=== PATIENT | male | born 1945 | race Caucasian/White ===

== ENCOUNTER 2017-08-06 16:43 | Inpatient (IN) | payer MEDICARE, BC ==
[2017-08-06] MEDS ORDERED: Pantoprazole 40 MG VIAL ONE (17:11)
[2017-08-06 17:19] LABS: #Basophils 0.1 thou/uL (0.0-0.2); #Eosinphils 0.1 thou/uL (0.0-0.7); #Lymphocytes 2.8 thou/uL (1.20-3.40); #Monocytes 1.9 thou/uL (0.11-0.59); %Basophils 0.4 % (0.0-1.0); %Eosinophils 0.4 % (0.0-10.0); %Lymphocytes 16.4 % (21.0-51.0); %Monocytes 11.1 % (0.0-10.0); %Neutrophils 71.6 % (42.0-75.0); Hemoglobin 14.7 g/dL (14.0-18.0); Mean Corpuscular Hemoglobin 31.2 pg (27.0-31.0); Mean Corpuscular Volume 88.9 fl (80.0-94.0); Mean Platelet Volume 6.3 fL (7.4-10.4); Platelet Count 382 thou/uL (130-400); RBC Distribution Width 11.8 % (11.5-14.5); Red Blood Cell (RBC) Count 4.71 mill/uL (4.70-6.10); White Blood Cell (WBC) Count 16.7 thou/uL (4.8-10.8)
[2017-08-06 17:33] LABS: PTT 27.5 SEC (22.9-36.1); Prothrombin Time 13.8 SEC (12.0-14.7)
[2017-08-06 17:48] LABS: Anion Gap 12 mmol/L (10-20); BUN (Urea Nitrogen) 14 mg/dL (8.4-25.7); Calc. Creatinine Clearance 0 mL/min (70-130); Calcium 9.5 mg/dL (7.8-10.44); Carbon Dioxide 26 mmol/L (23-31); Chloride 95 mmol/L (98-107); Estimated GFR-MDRD 65; Glucose 110 mg/dL (83-110); Sodium 129 mmol/L (136-145)
[2017-08-06 18:00] LABS: CKMB 4.2 ng/mL (0-6.6); Troponin I Less than 0.010 ng/mL (< 0.028)
--- NOTE | 2017-08-06 19:04 | PDOC.FPRHP ---
- History of Present Illness Chief Complaint: rectal bleed s/p colonoscopy History of Present Illness: Patient comes in for GI bleed after colonoscopy. PMH includes HLD, HTN, Hep C, and Bipolar. Colonoscopy was at 0830 this AM with 6 polyps removed and since that time he has had 6 episodes of bright red blood per rectum. He describes the stools as water with bright red tinge that spatters the toilet bowl. No large clots. The first episode was about 1130 this AM. He is not having any pain with bowel movements. He did eat 1 meal since having the colonoscopy. He denies any pain at the present time. While in the ED he had an episode of syncope while the nursing staff was giving fluids. He denies any headache or weakness. He had no aura. He has not felt light-headed since that episode. He states he has had episodes like this in the past when he gets anxious. ED Course: CXR, Abdominal X-ray 1 bolus NS Pantoprazole IV - Allergies/Adverse Reactions Allergies Allergy/AdvReac Type Severity Reaction Status Date / Time Penicillins Allergy Rash Verified 08/06/17 22:17 - Home Medications Medication Instructions Recorded Confirmed Type Atenolol 25 mg PO DAILY 02/21/15 08/07/17 History Benazepril HCl 40 mg PO HS 02/21/15 08/07/17 History Hydrochlorothiazide 25 mg PO BID 02/21/15 08/07/17 History Multivit-Min/FA/Lycopen/Lutein [A 1 tablet PO DAILY 02/21/15 08/07/17 History Thru Z Select Multivitamin] Pantoprazole [Protonix] 40 mg PO DAILY 02/21/15 08/07/17 History Saw Pierron 450 mg PO DAILY 02/21/15 08/07/17 History Simvastatin [Zocor] 40 mg PO QPM 02/21/15 08/07/17 History risperiDONE [RisperDAL] 1 mg PO HS 02/21/15 08/07/17 History Aspirin [Ecotrin] 81 mg PO DAILY 08/07/17 08/07/17 History Escitalopram Oxalate [Lexapro] 10 mg PO HS 08/07/17 08/07/17 History Temazepam [Restoril] 15 mg PO HS 08/07/17 08/07/17 History - History PMHx: HLD, HTN, Hep C, Bipolar, frequent UTIs PSHx: Appendectomy, Rotator Cuffx2 FHx: non-contributory mother/father Social: 45 pack-year smoking history, quit 30 years ago, 1-2 beers per week, no illicit drugs - Review of Systems General: denies: fever/chills, weight/appetite/sleep changes, night sweats Eyes: denies: eye pain, vision changes ENT: denies: nasal congestion, rhinorrhea Respiratory: denies: cough, congestion, shortness of breath Cardiovascular: reports: palpitation (this afternoon felt heart racing at times) . denies: chest pain, edema, orthopnea Gastrointestinal: reports: diarrhea (see hpi), GI bleeding. denies: nausea, vomiting, abdominal pain Genitourinary: reports: dysuria (1-2 days ago). denies: polyuria Skin: reports: rashes (jock itch). denies: lesions Musculoskeletal: denies: pain, arthritis/arthralgias Neurological: reports: syncope (see hpi). denies: numbness, seizure, weakness Psychological: reports: anxiety. denies: depression - Vital signs BP: 132/79 HR: 66 RR: 16 Tmax: 99.1 Pox: 100% on RA Wt: 108.86 - Physical Exam Constitutional: NAD, awake, alert and oriented HEENT: normocephalic and atraumatic, PERRLA, EOMI, MMM, oropharynx clear Neck: supple, FROM Heart: RRR, normal S1/S2, no murmurs/rubs/gallops Lungs: CTAB, no respiratory distress, good air movement Abdomen: soft, bowel sounds present, no masses/distention, other (mild epigastric tenderness) -Abdomen: no rebound tenderness, no fluid wave Musculoskeletal: normal structure, ROM grossly normal Neurological: no focal deficit, CN II-XII intact, normal sensation Skin: other (mild rash in groin creases) -Skin: cap refill 3s Heme/Lymphatic: no unusual bruising or bleeding Psychiatric: normal mood and affect FMR H&P: Results - Labs Result Diagrams: 08/06/17 23:24 08/06/17 17:10 Lab results: WBC 16.7 thou/uL (4.8-10.8) H 08/06/17 17:10 Hgb 14.7 g/dL (14.0-18.0) 08/06/17 17:10 Hct 41.9 % (42.0-52.0) L 08/06/17 17:10 MCV 88.9 fl (80.0-94.0) 08/06/17 17:10 Plt Count 382 thou/uL (130-400) 08/06/17 17:10 Neutrophils % 71.6 % (42.0-75.0) 08/06/17 17:10 Sodium 129 mmol/L (136-145) L 08/06/17 17:10 Potassium 4.0 mmol/L (3.5-5.1) 08/06/17 17:10 Chloride 95 mmol/L (98-107) L 08/06/17 17:10 Carbon Dioxide 26 mmol/L (23-31) 08/06/17 17:10 BUN 14 mg/dL (8.4-25.7) 08/06/17 17:10 Creatinine 1.11 mg/dL (0.6-1.3) 08/06/17 17:10 Glucose 110 mg/dL (83-110) 08/06/17 17:10 Calcium 9.5 mg/dL (7.8-10.44) 08/06/17 17:10 CK-MB (CK-2) 4.2 ng/mL (0-6.6) 08/06/17 17:10 FMR H&P: A/P - Problem List (1) GI bleed Current Visit: Yes Status: Acute Code(s): K92.2 - GASTROINTESTINAL HEMORRHAGE, UNSPECIFIED (2) Hyponatremia Current Visit: Yes Status: Acute Code(s): E87.1 - HYPO-OSMOLALITY AND HYPONATREMIA (3) Dehydration Current Visit: Yes Status: Acute Code(s): E86.0 - DEHYDRATION (4) Syncope Current Visit: Yes Status: Acute Code(s): R55 - SYNCOPE AND COLLAPSE (5) Status post colonoscopy Current Visit: Yes Status: Acute Code(s): Z98.890 - OTHER SPECIFIED POSTPROCEDURAL STATES - Plan # GI bleed s/p colonoscopy - Hgb 14.9, will re-check at 1130 - Clear liquid diet - GI Dr. Grossman is aware, recs monitor Hgb, call back if issues - serial abdominal exams # Syncope - in ED when placing IV, states this has happened before - Hgb 14.9, BP stable - no headache or focal weakness, likely vasovagal #Dehydration - cap refill 3s, feeling thirsty - only had 1 meal today after colonoscopy - 1L NS bolus in ED - NS 150ml/hr # Hyponatremia - 129 on admission - fluid repletion, recheck in AM # GERD - protonix # SIOMARA - home cpap # HTN - hold home meds 2/2 syncope # HLD - home meds # PPx - SCDs - bleeding risk # Code - full FMR H&P: Upper Level - Pertinent history PCP: Estrada Hernandez DO Patient seen at approximately 19:00 71 year old white male with a past medical history of HTN, SIOMARA, GERD, and HLD presents with hematochezia starting this afternoon. He had a colonoscopy performed by Dr. Powell today. He had 6 polyps removed. He originally had a small amount of blood but progressed to grossly blood stools and clots. In the ED he had a syncopal episode after getting his iv placed. He denies dizziness, confusion, chest pain, dyspnea, abdominal pain, nausea, and vomiting. - Pertinent findings Vital Signs BP: 150/79 HR: 66 RR: 19 O2 sat 100% on RA Temp 99.1 Physical Exam: General: NAD. Awake, alert, and oriented x4. Obese Eyes: EOMI, PERRLA, nonicteric ENT: MMM. Oropharynx clear CV: Regular rate and rhythm. No murmurs, rubs, or gallops. Respiratory: CTAB, no WRR. Nonlabored. Abdomen: Nontender, nondistended, no guarding, or rebound. Ext: No clubbing, cyanosis, or edema. Skin: No rash or ulcer. No palpable lesions Neuro: CN II - XII intact. No focal deficits. Psych: Mood and affect appropriate. Judgment and insight intact. - Plan Date/Time: 08/06/171900 I, Estrada Hernandez DO, have evaluated this patient and agree with findings/plan as outlined by internal grinder tender resident. Pertinent changes/additions are listed here. 71 year old white male presents with: 1) Acute GI bleed - Place in observation. Likely from polypectomy sites. Recheck CBC every 6 hours. I discussed the case with Dr. Grossman who recommended monitoring overnight and serial CBC. Will formally consult GI if patient has further bleeding. Monitor vital signs closely. Clear liquid diet. 2) Syncopal episode - Suspect vasovagal syncopy. Will monitor closely. 3) HTN - Home meds 4) Bipolar disorder - Home meds 5) HLD - Home meds 6) Obstructive sleep apnea - Home CPAP 7) GERD - Protonix 8) Code status - Full Attending Addendum - Attending Addendum Date/Time: 08/07/17 0124 (Seen on 08/06) I personally evaluated the patient and discussed the management with Dr. Landaverde and team. I agree with and repeated the History, Examination, Assessment and Plan documented above with any addition or exceptions noted below. Post-polypectomy bleed without signs/symptoms of perforation. Serial h/h. GI consultation.
[2017-08-06] MEDS ORDERED: Acetaminophen 325 MG TAB PO PRN (19:46)
[2017-08-06] MEDS ORDERED: Sodium Chloride 0.9% 1,000 ML IV SCH ×2 (19:46→21:30)
[2017-08-06 19:50] VITALS: BMI 35.4
--- NOTE | 2017-08-06 19:51 | RAD ---
ACUTE ABDOMINAL SERIES: 08/06/17 CLINICAL HISTORY: Altered mental status. Rectal bleeding. Recent colonoscopy. FINDINGS: Frontal view chest reveals no consolidation or effusion. No free air is seen beneath the hemidiaphrag ms. Cardiac silhouette is accentuated by technique. Bowel gas pattern is nonobstructed. Scattered oss eous degenerative changes are present. Phleboliths overlie the pelvis. IMPRESSION: No acute abnormalities are identified. POS: [facility]
[2017-08-06] MEDS ORDERED: GoLYTELY 4,000 ml Bottle PO SCH (21:30)
[2017-08-06 22:00] LABS: Band 3 % (5-11); Eosinophils 1 % (0-10); Lymphocytes 19 % (21-51); MDiff Complete? YES; Mean Corpuscular Hemoglobin 31.1 pg (27.0-31.0); Mean Corpuscular Volume 88.8 fl (80.0-94.0); Mean Platelet Volume 6.4 fL (7.4-10.4); Monocytes 4 % (0-10); Neutrophil 73 % (42-75); PLT Morphology Comment Appears Adequate; Platelet Count 378 thou/uL (130-400); RBC Distribution Width 11.7 % (11.5-14.5); Red Blood Cell (RBC) Count 4.19 mill/uL (4.70-6.10); White Blood Cell (WBC) Count 20.6 thou/uL (4.8-10.8)
--- NOTE | 2017-08-06 22:09 | PDOC.EVN ---
Event Note - Event Note Event Note: River sharma called on patient at approximately 21:00. Nurse had helped patient to toilet and reports he stated he didn't feel right, became pail, passed out and became unresponsive while sitting on the toilet. He had a pulse and spontaneous respirations at that time. Rudi Torres, Saima, and I responded to river sharma. On arrival at patient room, he was still sitting on toilet and was awake and able to answer questions appropriately. Stated he felt weak but was not in any pain. Patient's nurse reported he passed 400 cc blood from rectum just prior to event and had passed another 250 cc prior to this event but after arriving to floor. Patient was helped to bed. Vital Signs - Temp 98.1 HR 67 RR 20 BP 134/78 O2 96% on room air He was not in distress at the time but appeared pale. Heart rate was regular, lungs were clear, abdomen was soft, nondistended, and nontender. Patient was moved to IMCU. 1L NS bolus, CBC were ordered. 4 units FFP and 2 units PRBC were ordered to be held. I spoke with Dr. Grossman in GI at 21:24 and updated him on patient passing large amount of stool and syncopizing. He recommended making patient NPO and starting GoLytely prep. He stated he would come see the patient. Formal consult was ordered. <Estrada Hernandez - Last Filed: 08/06/17 22:09> Attending Addendum - Attending Addendum Date/Time: 08/07/17 0128 I personally evaluated the patient and discussed the management with Dr. Hernandez. I agree with and repeated the History, Examination, Assessment and Plan documented above with any addition or exceptions noted below. <Edgar Stern - Last Filed: 08/07/17 01:28>
[2017-08-06] MEDS: Sodium Chloride 0.9% 1,000 ML IV SCH (22:30)
[2017-08-06] MEDS ORDERED: diphenhydrAMINE 25 MG CAP PO PRN (23:36)
[2017-08-06 23:38] LABS: Hemoglobin 12.1 g/dL (14.0-18.0)
[2017-08-06] MEDS ORDERED: risperiDONE 1 MG TAB PO SCH (23:45)
--- NOTE | 2017-08-07 00:14 | PDOC.EVN ---
Event Note - Event Note Event Note: Patient reports no more BMs. Upright in bed drinking GoLytely. P65 BP 130/70 Abdomen soft, non-tender, no rebound Hgb trending down, will transfuse if syncopal episode occurs, pulses increases, or hgb continues to drop 2U PRBC, 4 U FFP on hold <Ike Landaverde - Last Filed: 08/07/17 00:12> Attending Addendum - Attending Addendum Date/Time: 08/07/17 0122 I personally evaluated the patient and discussed the management with Dr. Landaverde and team. I agree with the History, Examination, Assessment and Plan documented above with any addition or exceptions noted below. HDS. To IMCU for closer monitoring. <Edgar Stern - Last Filed: 08/07/17 01:22>
[2017-08-07 04:05] LABS: #Lymphocytes 1.3 thou/uL (1.20-3.40); #Monocytes 0.7 thou/uL (0.11-0.59); #Neutrophils 10.8 thou/uL (1.40-6.50); %Basophils 0.1 % (0.0-1.0); %Eosinophils 0.2 % (0.0-10.0); %Lymphocytes 9.9 % (21.0-51.0); %Monocytes 5.6 % (0.0-10.0); %Neutrophils 84.3 % (42.0-75.0); Hemoglobin 11.3 g/dL (14.0-18.0); Mean Corpuscular HGB CONC 34.9 g/dL (32.0-36.0); Mean Corpuscular Hemoglobin 31.1 pg (27.0-31.0); Mean Corpuscular Volume 89.3 fl (80.0-94.0); Mean Platelet Volume 6.5 fL (7.4-10.4); Platelet Count 305 thou/uL (130-400); RBC Distribution Width 11.7 % (11.5-14.5); Red Blood Cell (RBC) Count 3.62 mill/uL (4.70-6.10); White Blood Cell (WBC) Count 12.8 thou/uL (4.8-10.8)
[2017-08-07 04:21] LABS: Anion Gap 12 mmol/L (10-20); BUN (Urea Nitrogen) 13 mg/dL (8.4-25.7); Calc. Creatinine Clearance 90 mL/min (70-130); Calcium 8.3 mg/dL (7.8-10.44); Carbon Dioxide 25 mmol/L (23-31); Chloride 99 mmol/L (98-107); Estimated GFR-MDRD 66; Glucose 139 mg/dL (83-110); Sodium 132 mmol/L (136-145)
[2017-08-07] MEDS: Sodium Chloride 0.9% 1,000 ML IV SCH ×3 (05:49→17:22)
--- NOTE | 2017-08-07 06:42 | CON ---
DATE OF CONSULTATION: 08/06/2017 REASON FOR CONSULTATION: Hematochezia. CONSULTING PHYSICIAN: Dr. Estrada Hernandez. HISTORY OF PRESENT ILLNESS: The patient is a 71-year-old male with past medical history of hypertens ion, hyperlipidemia, chronic hepatitis C infection and bipolar disorder, presenting with complaints o f hematochezia. He underwent colonoscopy earlier today and had approximately 6 polyps removed during that examination. The polyps were characterized as 6 pedunculated and sessile polyps found in the s igmoid, transverse, and ascending colon. They were medium in size. All these polyps were removed wi snare cautery polypectomy. Also seen during the colonoscopy were multiple diverticula within the sigmoid and descending colon. However, after the procedure, he states that he went to eat breakfast and shortly after eating breakfast, he had the sensation to have a bowel movement. His initial bowel movement was primarily bloody with a little bit of water; however, the next 6-12 hours, he had appro ximately 5 more grossly bloody bowel movements that prompted him to seek healthcare attention. While in the emergency room, he did have an episode of loss of consciousness, felt to be due to a vasovaga l response with no loss of bladder or bowel control and no true syncopal type symptoms. He has not h ad any feelings of lightheadedness since that particular episode and currently he denies any nausea, vomiting, fevers, chills, odynophagia, dysphagia, abdominal pain, hematemesis, melena. REVIEW OF SYSTEMS: A 10-category review of systems was obtained with all responses negative except f or the pertinent positives as listed in the HPI. PAST MEDICAL HISTORY: As per HPI. PAST SURGICAL HISTORY: Appendectomy, rotator cuff surgery. FAMILY HISTORY: Denies any GI malignancies. SOCIAL HISTORY: Drinks approximately 1-2 beers per week. Denies any tobacco or illicit drug use. OUTPATIENT MEDICATIONS: Reviewed. ALLERGIES: PENICILLIN. PHYSICAL EXAMINATION: VITAL SIGNS: Temperature 98.1, pulse 72, blood pressure 126/80, respiratory rate 18, satting 95% on room air. GENERAL: The patient is lying in bed, in no acute distress. Alert and oriented x4. NECK: Supple. No JVD noted. CARDIOVASCULAR: Regular rate and rhythm with no discernible murmurs, gallops or rubs. RESPIRATORY: Clear to auscultation bilaterally with no discernible wheezes or rales. ABDOMEN: Normoactive bowel sounds, soft, nontender, nondistended. EXTREMITIES: No cyanosis, clubbing or edema. LABORATORY DATA: CBC with a white blood cell count 20.6, hemoglobin 13, hematocrit 37.2, platelets 3 78. Chemistry with a sodium of 129, potassium 4, chloride 95, CO2 of 26, BUN 14, creatinine 1.11, gl ucose 110. INR 1.0. IMAGING DATA: Colonoscopy performed on 08/06/2017 showing 6 pedunculated and sessile polyps found in the sigmoid, transverse colon and ascending colon. The polyps were medium in size. These polyps we re removed with a hot snare. Resection and retrieval were complete. Multiple diverticula were found in the sigmoid colon and descending colon. Retroflex view in the distal rectum and anal verge was n ormal and showed no anal or rectal abnormalities. A tattoo was also seen in the descending colon wit h normal appearing surrounding mucosa. ASSESSMENT AND PLAN: The patient is a 71-year-old male with past medical history of hypertension, hy perlipidemia, chronic HCV infection and bipolar disorder, presenting with hematochezia consistent wit h a post-polypectomy bleed. Post-polypectomy bleeding. The patient underwent colonoscopy on 08/06/2017 with removal of 6 pedunculated and sessile polyps in the sigmoid, transverse, and ascending colons. However, after the procedure, he had the appearance o f grossly bloody bowel movements over the course of the next 6-12 hours, but have not abated on their own. On admission, he was noted to have a decreased H&H when compared to baseline, but is currently not tachycardic or hypotensive concerning for significant gastrointestinal bleeding. At this time, repeat colonoscopy for evaluation of these polypectomy sites and possible intervention to stop the bl eeding is indicated. RECOMMENDATIONS: 1. Would continue to trend H&H and transfuse as necessary to maintain an H&H of 7/21. 2. Would start patient on GoLYTELY prep now with plans to proceed with colonoscopy in the morning fo r evaluation of probable post-polypectomy bleed and intervene on that particular site when encountere d. 3. Agree with transfer patient to the ICU for closer monitoring in light of significant hematochezia . 4. We will continue to follow. Please call with any questions.
--- NOTE | 2017-08-07 06:50 | PDOC.FM ---
- Objective Vital Signs & Weight: Vital Signs (12 hours) Temp Temp Pulse Pulse Resp Resp BP 08/07/17 04:00 97.5 F L 72 17 08/07/17 00:00 97.9 F 77 16 08/06/17 21:31 97.9 F 77 16 08/06/17 21:18 98.1 F 72 20 134/88 08/06/17 21:00 98.1 F 72 18 08/06/17 19:48 98.1 F 72 18 BP Pulse Ox Pulse Ox 08/07/17 04:00 160/82 H 99 08/07/17 00:00 153/80 H 100 08/06/17 21:31 134/69 100 08/06/17 21:18 94 L 08/06/17 21:00 08/06/17 19:48 126/80 95 Weight Weight 106.231 kg I&O: 08/05/17 08/06/17 08/07/17 06:59 06:59 06:59 Intake Total 5130 Output Total 400 Balance 4730 Result Diagrams: 08/07/17 03:45 08/07/17 03:45 <Karen Ellis - Last Filed: 08/07/17 06:49> - Objective Vital Signs & Weight: Vital Signs (12 hours) Temp Pulse Resp BP Pulse Ox 08/07/17 07:55 97.8 F 72 18 100 08/07/17 07:41 97.8 F 72 18 114/63 99 08/07/17 04:00 97.5 F L 72 17 160/82 H 99 08/07/17 00:00 97.9 F 77 16 153/80 H 100 Weight Weight 106.231 kg I&O: 08/06/17 08/07/17 08/08/17 06:59 06:59 06:59 Intake Total 5130 Output Total 400 Balance 4730 Result Diagrams: 08/07/17 03:45 08/07/17 03:45 <Alfonso Elder - Last Filed: 08/07/17 10:23> Dx/Plan (1) HTN (hypertension) Code(s): I10 - ESSENTIAL (PRIMARY) HYPERTENSION Status: Acute (2) Bipolar disorder Code(s): F31.9 - BIPOLAR DISORDER, UNSPECIFIED Status: Acute (3) HLD (hyperlipidemia) Code(s): E78.5 - HYPERLIPIDEMIA, UNSPECIFIED Status: Acute (4) SIOMARA (obstructive sleep apnea) Code(s): G47.33 - OBSTRUCTIVE SLEEP APNEA (ADULT) (PEDIATRIC) Status: Acute (5) GERD (gastroesophageal reflux disease) Code(s): K21.9 - GASTRO-ESOPHAGEAL REFLUX DISEASE WITHOUT ESOPHAGITIS Status: Acute (6) Dehydration Code(s): E86.0 - DEHYDRATION Status: Acute (7) GI bleed Code(s): K92.2 - GASTROINTESTINAL HEMORRHAGE, UNSPECIFIED Status: Acute (8) Hyponatremia Code(s): E87.1 - HYPO-OSMOLALITY AND HYPONATREMIA Status: Acute (9) Status post colonoscopy Code(s): Z98.890 - OTHER SPECIFIED POSTPROCEDURAL STATES Status: Acute (10) Syncope Code(s): R55 - SYNCOPE AND COLLAPSE Status: Acute - Plan Plan: 1. GI bleed s/p colonoscopy - Hgb 14.9, 12 on recheck - s/p bowel prep, bleeding has stopped since that time - GI Dr. Grossman is aware, recs monitor Hgb, plan for repeat colonoscopy today - serial abdominal exams 2. Syncope - in ED when placing IV, states this has happened before - Hgb 14.9-> 12, BP stable - no headache or focal weakness, likely vasovagal 3. Dehydration - 1L NS bolus in ED - NS 150ml/hr 4. Hyponatremia - 129 on admission - fluid repletion 5. GERD - protonix 6. SIOMARA - home cpap 7. HTN - hold home meds 2/2 syncope 8. HLD - home meds 9. PPx - SCDs - bleeding risk <Karen Ellis - Last Filed: 08/07/17 06:49> Attending Addendum - Attending Addendum Date/Time: 08/07/17 1020 I personally evaluated the patient and discussed the management with Dr. Ellis. I agree with the History, Examination, Assessment and Plan documented above with any addition or exceptions noted below. He feels well. No N,V, or abdominal pain. Last 3 BMs have been without visual blood. Stable and mildly hypertensive with BP 160/82. Abdomen protruberant, soft, BS active, no organomegaly, masses or tenderness. Hb 11.3. A: Post polypectomy Lower GI bleeding. Stable. P: Scheduled for colonoscopy later this morning with GI. MD James <Alfonso Elder - Last Filed: 08/07/17 10:23>
[2017-08-07] MEDS ORDERED: risperiDONE 1 MG TAB PO SCH ×3 (09:00→21:00)
--- NOTE | 2017-08-07 11:35 | PDOC.FM ---
- Subjective Subjective: Feeling well. He denies any further bloody bowel movements. He is feeling well and has no abdominal pain or weakness. - Objective MAR Reviewed: Yes Vital Signs & Weight: Vital Signs (12 hours) Temp Pulse Resp BP Pulse Ox 08/07/17 10:58 98.2 F 65 19 134/67 100 08/07/17 07:55 97.8 F 72 18 100 08/07/17 07:41 97.8 F 72 18 114/63 99 08/07/17 04:00 97.5 F L 72 17 160/82 H 99 08/07/17 00:00 97.9 F 77 16 153/80 H 100 Weight Weight 106.231 kg I&O: 08/06/17 08/07/17 08/08/17 06:59 06:59 06:59 Intake Total 5130 Output Total 400 Balance 4730 Result Diagrams: 08/07/17 03:45 08/07/17 03:45 <Karen Ellis - Last Filed: 08/07/17 11:42> - Objective Vital Signs & Weight: Vital Signs (12 hours) Temp Pulse Resp BP Pulse Ox 08/07/17 10:58 98.2 F 65 19 134/67 100 08/07/17 07:55 97.8 F 72 18 100 08/07/17 07:41 97.8 F 72 18 114/63 99 08/07/17 04:00 97.5 F L 72 17 160/82 H 99 08/07/17 00:00 97.9 F 77 16 153/80 H 100 Weight Weight 106.231 kg I&O: 08/06/17 08/07/17 08/08/17 06:59 06:59 06:59 Intake Total 5130 Output Total 400 Balance 4730 Result Diagrams: 08/07/17 03:45 08/07/17 03:45 <Alfonso Elder - Last Filed: 08/07/17 11:45> Phys Exam - Physical Examination Constitutional: NAD HEENT: moist MMs Neck: supple Respiratory: no wheezing, clear to auscultation bilateral Cardiovascular: RRR, no significant murmur Gastrointestinal: soft, non-tender, no distention, positive bowel sounds Musculoskeletal: no edema, pulses present Neurological: non-focal, moves all 4 limbs Psychiatric: normal affect, A&O x 3 Skin: no rash, cap refill <2 seconds <Karen Ellis E - Last Filed: 08/07/17 11:42> Dx/Plan (1) HTN (hypertension) Code(s): I10 - ESSENTIAL (PRIMARY) HYPERTENSION Status: Acute (2) Bipolar disorder Code(s): F31.9 - BIPOLAR DISORDER, UNSPECIFIED Status: Acute (3) HLD (hyperlipidemia) Code(s): E78.5 - HYPERLIPIDEMIA, UNSPECIFIED Status: Acute (4) SIOMARA (obstructive sleep apnea) Code(s): G47.33 - OBSTRUCTIVE SLEEP APNEA (ADULT) (PEDIATRIC) Status: Acute (5) GERD (gastroesophageal reflux disease) Code(s): K21.9 - GASTRO-ESOPHAGEAL REFLUX DISEASE WITHOUT ESOPHAGITIS Status: Acute (6) Dehydration Code(s): E86.0 - DEHYDRATION Status: Acute (7) GI bleed Code(s): K92.2 - GASTROINTESTINAL HEMORRHAGE, UNSPECIFIED Status: Acute (8) Hyponatremia Code(s): E87.1 - HYPO-OSMOLALITY AND HYPONATREMIA Status: Acute (9) Status post colonoscopy Code(s): Z98.890 - OTHER SPECIFIED POSTPROCEDURAL STATES Status: Acute (10) Syncope Code(s): R55 - SYNCOPE AND COLLAPSE Status: Acute - Plan Plan: 1. GI bleed s/p colonoscopy - Hgb 14.9, 12 on recheck - s/p bowel prep, bleeding has stopped since that time - GI Dr. Grossman is aware, recs monitor Hgb, plan for repeat colonoscopy today - serial abdominal exams 2. Syncope - in ED when placing IV, states this has happened before - Hgb 14.9-> 11, BP stable - no headache or focal weakness 3. Dehydration - 1L NS bolus in ED - NS 150ml/hr 4. Hyponatremia - 129 on admission - fluid repletion 5. GERD - protonix 6. SIOMARA - home cpap 7. HTN - hold home meds 2/2 syncope 8. HLD - home meds 9. PPx - SCDs - bleeding risk <Karen Ellis - Last Filed: 08/07/17 11:42> Attending Addendum - Attending Addendum Date/Time: 08/07/17 7958 I personally evaluated the patient and discussed the management with Dr. Ellis. I agree with the History, Examination, Assessment and Plan documented above with any addition or exceptions noted below. He feels well. No N,V, or abdominal pain. Last 3 BMs have been without visual blood. Stable and mildly hypertensive with BP 160/82. Abdomen protruberant, soft, BS active, no organomegaly, masses or tenderness. Hb 11.3. A: Post polypectomy Lower GI bleeding. Stable. P: Scheduled for colonoscopy later this morning with GI. MD James <Alfonso Elder - Last Filed: 08/07/17 11:45>
[2017-08-07] MEDS: Pantoprazole 40 MG GRANULES PACKET PO SCH (12:20)
[2017-08-07] MEDS: Multivitamin W/ Minerals 1 TAB PO SCH (12:20)
[2017-08-07] MEDS ORDERED: Promethazine HCl 25 MG/ML VIAL SLOW IVP PRN (15:15)
[2017-08-07] MEDS ORDERED: Promethazine HCl 25 MG/ML VIAL IM PRN (15:15)
[2017-08-07] MEDS ORDERED: Ondansetron HCl/PF 4 MG/2 ML Vial IVP PRN (15:15)
[2017-08-07] MEDS ORDERED: PHENYLEPHRINE-NS 100 MCG/ML 10 ML SYRINGE ONE (15:53)
[2017-08-07] MEDS ORDERED: PROPOFOL 200 MG/20 ML VIAL ONE (15:53)
--- NOTE | 2017-08-07 18:51 | OP ---
DATE OF PROCEDURE: 08/07/2017 SURGEON: Alfonso Cox M.D. HITCHER SURGEON: None. PROCEDURE: Colonoscopy with Hemoclip placement x2. INDICATION: Post-polypectomy bleeding and acute blood loss anemia. MEDICATIONS: See anesthesia record. FINDINGS: After discussion of the risks, benefits and alternatives of the procedure, informed consen t was obtained and witnessed. Pre-endoscopic cardiopulmonary examination was satisfactory. Timeout was performed before sedation was achieved. Sedation was achieved with anesthesia assistance in the endoscopy unit. Digital rectal exam was performed which was unremarkable. A Pentax adult colonoscop e was inserted into the anus and passed forward to the cecum in the usual fashion. The cecal base wa s identified by the appendiceal orifice as well as the ileocecal valve. The terminal ileum was intub ated and the ileal mucosa appeared normal. The colonoscope was then slowly withdrawn in a gradual an d circumferential manner with careful examination of the entire colonic mucosa. The quality of the p rep was good. There was no old blood or active bleeding noted throughout the colon. There were 6 po lypectomy sites visualized in the ascending colon, transverse colon, descending colon, and sigmoid co viviane. Two of these sites were larger with visible vessels. Either one of these sites could have been the site of his recent post-polypectomy bleed. These were located in the ascending colon and in the transverse colon. I placed a single Hemoclip to each of these 2 polypectomy sites and hemostasis wa s maintained. The remainder of the colonoscopy appeared normal. The colonoscope was then completely withdrawn and the patient allowed to recover. The patient tolerated the procedure well. There were no immediate post-procedure complications. IMPRESSION: 1. No old blood or active bleeding. 2. Six polypectomy site as detailed above, two of the sites were larger with visible vessel. Hemocl ips placed x2 to these sites. RECOMMENDATIONS: 1. Regular diet. 2. Okay to discharge from the hospital from a GI perspective.
[2017-08-07] MEDS ORDERED: Atorvastatin Calcium 20 MG TAB PO SCH (21:00)
--- NOTE | 2017-08-08 07:28 | PDOC.FM ---
- Subjective Subjective: Mr. Strickland is feeling very well this morning. He denies any further BRBPR, he has not had a BM since scope yesterday. He has no abdominal pain and feels stable on his feet and ready to go home. - Objective MAR Reviewed: Yes Vital Signs & Weight: Vital Signs (12 hours) Temp Pulse Resp BP Pulse Ox 08/08/17 04:00 98 F 78 18 131/67 95 08/08/17 00:00 98.5 F 62 19 102/51 L 94 L 08/07/17 20:00 98.9 F 78 16 135/58 L 95 Weight Weight 108.136 kg I&O: 08/07/17 08/08/17 08/09/17 06:59 06:59 06:59 Intake Total 5130 2045 Output Total 400 1040 Balance 4730 1005 Result Diagrams: 08/07/17 03:45 08/07/17 03:45 EKG Reviewed by me: Yes <Karen Ellis - Last Filed: 08/08/17 09:27> - Objective Vital Signs & Weight: Vital Signs (12 hours) Temp Pulse Resp BP BP Pulse Ox 08/08/17 08:51 73 144/73 H 08/08/17 07:43 98.3 F 73 15 100/51 L 95 08/08/17 04:00 98 F 78 18 131/67 95 08/08/17 00:00 98.5 F 62 19 102/51 L 94 L Weight Weight 108.136 kg I&O: 08/07/17 08/08/17 08/09/17 06:59 06:59 06:59 Intake Total 5130 2045 Output Total 400 1040 Balance 4730 1005 Result Diagrams: 08/07/17 03:45 08/07/17 03:45 <Alfonso Elder - Last Filed: 08/08/17 10:17> Phys Exam - Physical Examination Constitutional: NAD HEENT: moist MMs, sclera anicteric Neck: supple Respiratory: no wheezing, clear to auscultation bilateral Cardiovascular: RRR, no significant murmur Gastrointestinal: soft, non-tender, no distention, positive bowel sounds Musculoskeletal: no edema, pulses present Neurological: non-focal, moves all 4 limbs Psychiatric: normal affect Skin: no rash, normal turgor, cap refill <2 seconds <Karen Ellis - Last Filed: 08/08/17 09:27> Dx/Plan (1) HTN (hypertension) Code(s): I10 - ESSENTIAL (PRIMARY) HYPERTENSION Status: Acute (2) Bipolar disorder Code(s): F31.9 - BIPOLAR DISORDER, UNSPECIFIED Status: Acute (3) HLD (hyperlipidemia) Code(s): E78.5 - HYPERLIPIDEMIA, UNSPECIFIED Status: Acute (4) SIOMRAA (obstructive sleep apnea) Code(s): G47.33 - OBSTRUCTIVE SLEEP APNEA (ADULT) (PEDIATRIC) Status: Acute (5) GERD (gastroesophageal reflux disease) Code(s): K21.9 - GASTRO-ESOPHAGEAL REFLUX DISEASE WITHOUT ESOPHAGITIS Status: Acute (6) Dehydration Code(s): E86.0 - DEHYDRATION Status: Acute (7) GI bleed Code(s): K92.2 - GASTROINTESTINAL HEMORRHAGE, UNSPECIFIED Status: Acute (8) Hyponatremia Code(s): E87.1 - HYPO-OSMOLALITY AND HYPONATREMIA Status: Acute (9) Status post colonoscopy Code(s): Z98.890 - OTHER SPECIFIED POSTPROCEDURAL STATES Status: Acute (10) Syncope Code(s): R55 - SYNCOPE AND COLLAPSE Status: Acute - Plan Plan: 1. GI bleed s/p colonoscopy - Hgb 14.9 -> 11.2 - Bleeding has stopped since prior to colonoscopy yesterday - No active bleeding visualized, hemoclips placed x2 - OK for D/C from GI standpoint per Case 2. Syncope - Hgb 14.9-> 11.2, BP stable - no headache or focal weakness - Likley vasoval while IV was being placed 3. Dehydration - sp 1L NS bolus in ED 4. Hyponatremia - 129 on admission - improving with fluid repletion 5. GERD - protonix 6. SI[place]ARA - home cpap 7. HTN - home meds - will monitor this morning and consider holding HCTZ if running low 8. HLD - home meds 9. PPx - SCDs - bleeding risk 10. Bipolar d/o - Home meds D/C later this morning with f/u in [address] Hernandez <Karen Ellis - Last Filed: 08/08/17 09:27> Attending Addendum - Attending Addendum Date/Time: 08/08/17 1016 I personally evaluated the patient and discussed the management with Dr. Ellis. I agree with the History, Examination, Assessment and Plan documented above with any addition or exceptions noted below. Seen ambulating in room. States he feels well, no bleeding. Ready to go home. Hb 11.3. A: Post polypectomy lower GI bleed resolved. P: Stable for discharge. Follow up with Dr. Compa Hernandez PCP in one week. MD James <Alfonso Elder - Last Filed: 08/08/17 10:17>
[2017-08-08 07:44] VITALS: TEMP 98.3
[2017-08-08] MEDS: Multivitamin W/ Minerals 1 TAB PO SCH (08:51)
[2017-08-08] MEDS: Pantoprazole 40 MG GRANULES PACKET PO SCH (08:51)
[2017-08-08 08:55] VITALS: BP 144/73
[2017-08-08] MEDS ORDERED: Atenolol 25 MG TAB PO SCH (09:00)
[2017-08-08] MEDS ORDERED: Temazepam 15 MG CAP PO SCH (21:00)
[2017-08-08] MEDS ORDERED: Escitalopram Oxalate 10 mg Tablet PO SCH (21:00)
[2017-08-08] MEDS ORDERED: Non-Formulary Item 1 EACH (Benazepril Hcl [Benazepril Hcl] 40 MG) PO SCH (21:00)
--- NOTE | 2017-08-09 08:03 | DIS-2 ---
DATE OF ADMISSION: 08/06/2017 DATE OF DISCHARGE: 08/08/2017 RESIDENT: Karen Ellis M.D. ADMITTING ATTENDING: uSnni Rosales M.D. DISCHARGE ATTENDING: Alfonso Elder M.D. CONSULTS: Dr. Grossman and Dr. Cox with Gastroenterology. STUDIES: 1. Acute abdominal series (08/06/2017). No acute abnormalities were identified. 2. Colonoscopy (08/07/2017). No old blood or active bleeding. Six polypectomy sites as detailed in the operative report were noted with 2 other sites larger with visible vessel. Hemoclips were place d x2 at the sites. PRIMARY DIAGNOSIS: Acute gastrointestinal bleed. SECONDARY DIAGNOSES: 1. Hypertension. 2. Hyperlipidemia. 3. Bipolar disorder. 4. Dehydration. 5. Hyponatremia. 6. Obstructive sleep apnea. 7. Syncope. DISCHARGE MEDICATIONS: 1. Atenolol 25 mg p.o. daily. 2. Benazepril 40 mg p.o. at bedtime. 3. Lexapro 10 mg p.o. at bedtime. 4. Multivitamin 1 tablet p.o. daily. 5. Protonix 40 mg p.o. daily. 6. Simvastatin 20 mg p.o. daily. 7. Temazepam 15 mg p.o. at bedtime. 8. Aspirin 81 mg p.o. daily. 9. Hydrochlorothiazide 25 mg p.o. b.i.d. 10. Risperdal 1 mg p.o. at bedtime. 11. Saw Sherrard 450 mg p.o. daily. HISTORY OF PRESENT ILLNESS AND HOSPITAL COURSE: Mr. Strickland presented from home on 08/06/2017 after having had an outpatient colonoscopy performed. He reported that colonoscopy was uneventful; however , 6 polyps were removed. Upon returning home, he had 6 episodes of bright blood per rectum and came to the ER for further evaluation. He did have a syncopal episode while in the emergency department w hen the staff was starting an IV or giving fluids. It was felt that episode was related to vasovagal . He had not felt lightheaded or anxious, has been otherwise unsteady. He was admitted to the floor and Gastroenterology was consulted with plans for colonoscopy in the morning. Throughout his first night here, he became unresponsive while sitting on the toilet and a code green was called. He was p romptly evaluated, moved onto the [facility] for closer monitoring. He continued to have bright blood per rectum with a total of approximately 650 mL past. His H and H remained stable and vital signs also r emained stable. Dr. Grossman was consulted again at that time and recommended making the patient n.p.o. and starting GoLYTELY prep. He had no further blood in his bowel movements and a repeat colonoscopy was unremarkable apart from a couple of areas where there may have been irritable vessels and clips were placed at these locations. He has not had any blood in his bowel movement for over 24 hours and is feeling well today. His blood pressure has overall been within normal range, but he has had coup le on the low side. I discussed with him continuing to monitor at home and holding hydrochlorothiazi de for systolic less than 120 for a few days until he is feeling back to normal. He has been instruc jacey to follow up with Dr. Hernandez within 1 week to follow up on H and H as well as ensure that his hy ponatremia is continuing to resolve as it was doing here. DISCHARGE INSTRUCTIONS: 1. Condition: Stable 2. Location: Home. 3. Diet: Heart healthy. 4. Followup: With Dr. Hernandez within 1 week of discharge and with Dr. Powell pmatias
== END 2017-08-08 12:44 | disposition home or self-care (01) | DRG 920 ==
LOC: ERS 16:43 → T4-B 19:29 → OBSVTOIN 19:29 → IMCU/EMU 21:51
PROVIDERS: ADMIT Emergency Medicine; ATTEND Emergency Medicine
PROC: 30233N1 Transfusion of Nonautologous Red Blood Cells into Peripheral Vein, Percutaneous Approach (ICD-10-PCS; 2017-08-06)
PROC: 30233K1 Transfusion of Nonautologous Frozen Plasma into Peripheral Vein, Percutaneous Approach (ICD-10-PCS; 2017-08-06)
PROC: 0W3P8ZZ Control Bleeding in Gastrointestinal Tract, Via Natural or Artificial Opening Endoscopic (ICD-10-PCS; principal; 2017-08-07)
DX: K91.840 Postprocedural hemorrhage of a digestive system organ or structure following a digestive system procedure (principal); E87.1 Hypo-osmolality and hyponatremia; E78.5 Hyperlipidemia, unspecified; E86.0 Dehydration; I10 Essential (primary) hypertension; B19.20 Unspecified viral hepatitis C without hepatic coma; F31.9 Bipolar disorder, unspecified; R55 Syncope and collapse; K21.9 Gastro-esophageal reflux disease without esophagitis; G47.33 Obstructive sleep apnea (adult) (pediatric); Y83.8 Other surgical procedures as the cause of abnormal reaction of the patient, or of later complication, without mention of misadventure at the time of the procedure; Z87.891 Personal history of nicotine dependence; Z90.49 Acquired absence of other specified parts of digestive tract
CPT/HCPCS: 36415; 36416; 74022; 80048; 82553; 84484; 85025; 85610; 85730; 86850; 86900; 86901; 87040; 93005; 96361; 96374; C9113; J2704